=== PATIENT | female | born 1980 | race Two or more races ===

== ENCOUNTER 2021-05-18 14:36 | Emergency (ER) | payer MEDICAID ==
[~2021-05-18] VITALS: Ht 170.2 cm; Wt 65.8 kg
[2021-05-18 14:57] VITALS: BP 122/77
[2021-05-18 15:14] LABS: Urine Bacteria FEW /hpf (None Seen); Urine Blood Negative /uL (Negative); Urine Specific Gravity 1.017 (1.001-1.035); Urine WBC 5 /hpf (0 - 5)
[2021-05-18 15:28] LABS: Alcohol, Urine < 3.0 mg/dL (0-10); Amphetamine Screen, Urine POSITIVE (NEGATIVE); Barbiturate Scree,Urine NEGATIVE (NEGATIVE); Benzodiazephine Screen, Urine NEGATIVE (NEGATIVE); Cannabinoid Screen, Urine POSITIVE (NEGATIVE); Cocaine Screen, Urine NEGATIVE (NEGATIVE); Phencyclidine Screen, Urine NEGATIVE (NEGATIVE)
[2021-05-18 15:35] LABS: Opiate Scree,Urine NEGATIVE (NEGATIVE)
== END 2021-05-18 16:57 | disposition home or self-care (01) ==
LOC: ER 14:36
DX: F15.10 Other stimulant abuse, uncomplicated (principal)
CPT/HCPCS: 36415; 80307; 81001; 81025; 84702